=== PATIENT | male | born 2000 | race Caucasian/White ===

== ENCOUNTER 2019-03-06 17:36 | Emergency (ER) | payer BC ==
[2019-03-06] MEDS ORDERED: Proparacaine 0.5% OPHTH.SOL* 15 ML BTL LEFT EYE ONE (17:54)
[2019-03-06] MEDS ORDERED: Fluorescein Sodium TOPICAL* 1 MG TEST STRIP OPHTHALMIC ONE (17:54)
[2019-03-06] MEDS ORDERED: Tetracaine 0.5% OPTH.SOL 4 ML* 1 DROP BTL SCH (18:00)
[2019-03-06] MEDS ORDERED: Tetracaine 0.5% OPTH.SOL 4 ML* 1 DROP BTL ONE (18:07)
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
[2019-03-06 18:57] VITALS: BP 149/89
== END 2019-03-06 18:56 | disposition home or self-care (01) ==
LOC: ED 17:36
DX: S05.91XA Unspecified injury of right eye and orbit, initial encounter (principal); W21.09XA Struck by other hit or thrown ball, initial encounter; Y92.9 Unspecified place or not applicable
CPT/HCPCS: 99282; A9270-GY